=== PATIENT | female | born 1980 | race Caucasian/White ===

== ENCOUNTER → 2017-05-22 | Outpatient (CLI) | payer OTHER ==
--- NOTE | ~2017-05-22 | MCT ---
[facility] [place] [address] METHACHOLINE CHALLENGE TEST Name: MARIEL GUERRERO Room #: REG [facility] Bill#: [id number] Admission: 05/22/17 Attend Phys: Raffaele Reza MD Discharge: Date of : 84 Report #: [id number] THIS REPORT FOR: //name// COPIES FOR: AGE: 37 SEX/RACE: F/C Height: 56 in Exam Date: 05/22/17 Weight: 128 lbs BTPS: X >> PRE BRONCHODILATOR: PREDICTED BEST %PRED FORCED VITAL CAPACITY (FRC) 2.52 L 3.69 LPM 146 % FORCED EXP VOL/SEC (FEV1) 2.23 L 2.98 FEV/FVC 134 % MAX MID-EXP FLOW (FEF 25-75) 2.77 L/SEC 2.90 L/SEC 105 % PEAK EXP FLOW RATE (FEF MAX) 5.36 L/MIN 6.84 L/MIN MED-VC RATIO (FEF 50/FEF 50) .09 Baseline: Phenol Saline Level 1: 0.025 mg/ml BEST %PRED %CHANGE BEST %PRED %CHANGE FVC 3.56 L 141 % -4 % FVC 3.94 L 157 % 11 % FEV1 2.84 L 127 % -5 % FEV1 3.01 L 135 % 6 % Level 2: 0.25 mg/ml Level 3: 2.5 mg/ml BEST %PRED %CHANGE BEST %PRED %CHANGE FVC 3.75 L 149 % 5 % FVC 3.70 L 147 % 4 % FEV1 2.98 L 134 % 5 % FEV1 2.74 L 123 % -3 % . Level 4: 10 mg/ml Level 5: 25 mg/ml BEST %PRED %CHANGE BEST %PRED %CHANGE FVC 3.10 L 123 % -13 % FVC L % % FEV1 1.79 L 80 % -37 % FEV1 L % % Post Bronchodilator: 1st Treatment Post Bronchodilator: 2nd Treatment BEST %PRED %CHANGE BEST %PRED %CHANGE FVC 3.59 L 142 % 1 % FVC L % % FEV1 2.67 L 120 % -6 % FEV1 L % % Post Bronchodilator: 3rd Treatment BEST %PRED %CHANGE [facility] [address] [place] [address] METHACHOLINE CHALLENGE TEST Name: MRAIEL GUERRERO Room #: REG [facility]#: [id number] Admission: 05/22/17 Attend Phys: Raffaele Reza MD Discharge: Date of : 84 Report #: [id number] FVC L % % FEV1 L % % >> INTERPRETATION: CC: Jerald Reza DATE OF SERVICE: 05/22/2017 NOTATION: Methacholine challenge study reveals significant reaction to methacholine at level 4. In the right clinical setting, this could be consistent with bronchial hypersensitivity and asthma. <ELECTRONICALLY SIGNED> By: Raffaele Reza MD 07/25/17 1123 Raffaele Reza MD /nt
== END ==
LOC: PUL 10:15 → EDSTATUS 14:13 → PUL 14:31
DX: R04.2 Hemoptysis (principal); R06.00 Dyspnea, unspecified